=== PATIENT | female | born 1990 | race Caucasian/White ===

== ENCOUNTER 2019-10-30 15:59 | Emergency (ER) | payer BC, OTHER ==
[~2019-10-30] VITALS: Ht 152.4 cm; Wt 131.1 kg
[2019-10-30 16:07] VITALS: BP 132/69
--- NOTE | 2019-10-30 16:11 | NUR ---
TO ER BED 6 AWAITING MD TORRES
--- NOTE | 2019-10-30 17:06 | NUR ---
COVID SWAB DONE AND SENT OT LAB
--- NOTE | 2019-10-30 17:12 | NUR ---
telephone [phone]
--- NOTE | 2019-10-30 17:12 | NUR ---
Patient discharged to home in stable condition. Written and verbal after care instructions given. Patient verbalizes understanding of instruction. Pt ambulatory with a steady gait
== END 2019-10-30 17:13 | disposition home or self-care (01) ==
LOC: ER 16:02
DX: J06.9 Acute upper respiratory infection, unspecified (principal); E66.01 Morbid (severe) obesity due to excess calories; Z88.0 Allergy status to penicillin; Z68.43 Body mass index [BMI] 50.0-59.9, adult; Z20.828 Contact with and (suspected) exposure to other viral communicable diseases